=== PATIENT | female | born 1945 | race Hispanic/Latino ===

== ENCOUNTER → 2021-05-31 | Outpatient (CLI) | payer MEDICARE ==
[~2021-05-31] VITALS: Ht 165.1 cm; Wt 78.7 kg
[~2021-05-31] MED LIST: CEFAZOLIN SODIUM 1 GM VIAL IVP SCH
[2021-05-31 10:52] LABS: HEMATOCRIT 41.9 % (36-48); LYMPHOCYTES % (AUTO) 25.6 % (21.0-51.0); MEAN CORPUSCULAR HEMOGLOBIN 31.1 pg (27.0-33.0); MEAN CORPUSCULAR HGB CONC 33.7 g/dL (32.0-36.0); MEAN CORPUSCULAR VOLUME 92.3 fL (79-99); MONOCYTES % (AUTO) 7.8 % (3.0-13.0); NEUTROPHILS % (AUTO) 63.1 % (40.0-77.0); PLATELET COUNT (AUTO) 297 K/uL (130-400); RED BLOOD CELL COUNT(AUTO) 4.54 MIL/uL (4.00-5.50); RED CELL DISTRIBUTION WIDTH 12.6 % (11.0-15.5)
[2021-05-31 10:58] LABS: POTASSIUM 4.2 mmol/L (3.5-5.1)
[2021-06-02 09:52] VITALS: BP 143/65
== END | disposition home or self-care (01) ==
LOC: DAH 10:00 → EDSTATUS 15:00
PROVIDERS: ATTEND Neurological Surgery
DX: M48.062 Spinal stenosis, lumbar region with neurogenic claudication (principal); Z79.899 Other long term (current) drug therapy
CPT/HCPCS: 36415; 71045; 80051; 85025; 87635; A6260; J0690

== ENCOUNTER 2021-06-14 13:00 | Observation (INO) | payer MEDICARE ==
[~2021-06-14] VITALS: Ht 165.1 cm; Wt 81.6 kg
[2021-06-16] MEDS ORDERED: vitamin d PO (14:05)
[2021-06-16] MEDS ORDERED: MULT-1367 PO (14:05)
[2021-06-17] VITALS (26 sets, daily range): BP systolic 100–140; BP diastolic 49–76
[2021-06-17] MEDS: CEFAZOLIN SODIUM 1 GM VIAL IVP SCH ×6 (06:30→23:42)
[2021-06-17] MEDS ORDERED: LACTATED RINGERS 1000ML 1,000 ML IV ONE (06:35)
[2021-06-17] MEDS ORDERED: CEFAZOLIN SODIUM 1 GM VIAL ONE ×2 (07:01→11:28)
[2021-06-17] MEDS ORDERED: DEXAMETHASONE SOD PHOSPHATE 10MG/ML 1ML VIAL ONE ×2 (07:02→07:07)
[2021-06-17] MEDS ORDERED: MORPHINE PF 100MG/10ML AMP IV ONE (07:02)
[2021-06-17] MEDS ORDERED: SUCCINYLCHOLINE CHLORIDE 20 MG/ML 10 ML VIAL ONE (07:02)
[2021-06-17] MEDS ORDERED: THROMBIN-JMI 20000 UNIT KIT TP ONE (07:02)
[2021-06-17] MEDS ORDERED: PROPOFOL 10 MG/ML 20ML VIAL IV ONE (07:02)
[2021-06-17] MEDS ORDERED: LIDOCAINE PF 100MG/5ML (2%) SYRINGE 5ML ONE (07:02)
[2021-06-17] MEDS ORDERED: BUPIVACAINE/EPI/PF 0.25% 30ML VIAL IJ ONE (07:02)
[2021-06-17] MEDS ORDERED: ONDANSETRON 4MG INJ ONE (07:03)
[2021-06-17] MEDS ORDERED: MIDAZOLAM HCL 1 MG/ML 2ML VIAL ONE (07:03)
[2021-06-17] MEDS ORDERED: NEOSTIGMINE 5MG/5ML SYR IV ONE (07:03)
[2021-06-17] MEDS ORDERED: GLYCOPYRROLATE 1 MG/5 ML SYRINGE ONE (07:03)
[2021-06-17] MEDS ORDERED: ROCURONIUM 10MG/1ML SYR 10 MG/ML ML ONE (07:03)
[2021-06-17] MEDS ORDERED: FENTANYL CITRATE PF 50 MCG/1 ML 2ML VIAL ONE (07:04)
[2021-06-17] MEDS ORDERED: ARTIFICIAL TEARS 3.5 GM OINTMENT ONE (08:10)
[2021-06-17] MEDS ORDERED: 0.9%NACL 10ML VIAL IVP PRN (11:30)
[2021-06-17] MEDS: DEXAMETHASONE SOD PHOSPHATE 4 MG/ML 1ML VIAL IVP SCH ×3 (11:30→23:43)
[2021-06-17] MEDS ORDERED: HYDROCODONE/ACETAMINOPHEN 5/325 MG TAB PO PRN (11:30)
[2021-06-17] MEDS: LACTATED RINGERS 1000ML 1,000 ML IV SCH ×2 (11:30→23:42)
[2021-06-17] MEDS ORDERED: MORPHINE 2 MG SYG IVP PRN (11:30)
[2021-06-17] MEDS ORDERED: PROMETHAZINE HCL 25 MG/ML 1ML AMPULE IM PRN (11:30)
[2021-06-18 04:00] VITALS: BP 127/59
[2021-06-18] MEDS: DEXAMETHASONE SOD PHOSPHATE 4 MG/ML 1ML VIAL IVP SCH (06:27)
[2021-06-18 08:00] VITALS: BP 126/58
[2021-06-18] MEDS ORDERED: MULTIVITAMIN TABLET PO SCH (09:00)
[2021-06-18] MEDS ORDERED: ERGOCALCIFEROL (VITAMIN D2) 50,000 UNIT CAPSULE PO SCH (09:00)
[2021-06-18] MEDS ORDERED: FLU VACC QS2021-22(6MOS UP)/PF 60 MCG/0.5 ML ML IM ONE (10:30)
[2021-06-18] MEDS ORDERED: FLU VACC QS2021-22(6MOS UP)/PF 60 MCG/0.5 ML ML IM SCH (11:00)
== END 2021-06-18 12:30 | disposition home or self-care (01) ==
LOC: INTOOBSV 06-17 06:06 → DAHIP 06-17 06:06 → 4BH 06-17 11:59 → EDSTATUS 06-17 13:00
PROVIDERS: ADMIT Neurological Surgery; ATTEND Neurological Surgery
DX: M48.061 Spinal stenosis, lumbar region without neurogenic claudication (principal); Z20.822 Contact with and (suspected) exposure to COVID-19; M25.78 Osteophyte, vertebrae; Z90.710 Acquired absence of both cervix and uterus; Z23 Encounter for immunization
CPT/HCPCS: 63047; 63048 ×2; 72020; 87635; 96374; 96375; 96376 ×2; A4215; A4216; A4221; A4222; A4223 ×2; A4344; A4510; A4600; A4649 ×3; A4663; A6260; G0008; G0378 ×24; J0330; J0690 ×4; J1100 ×5; J2001; J2250; J2274; J2405; J2704; J2710; J3010; J3490 ×2; J7120 ×3; Q2035